=== PATIENT | male | born 1960 | race Caucasian/White ===

== ENCOUNTER 2017-03-29 08:25 | Emergency (ER) | payer BC ==
[~2017-03-29] VITALS: Ht 182.9 cm; Wt 102.2 kg
[2017-03-29 08:26] VITALS: TEMP 36.6; Ht 182.9 cm; Wt 102.2 kg
[2017-03-29] MEDS ORDERED: MAGN400T6 PO (08:36)
[2017-03-29] MEDS ORDERED: ROSU5TAB PO (08:36)
[2017-03-29] MEDS ORDERED: MULT-506 PO (08:36)
[2017-03-29] MEDS ORDERED: RIVA1TAB PO (08:36)
[2017-03-29] MEDS ORDERED: CYAN10005 PO (08:36)
[2017-03-29] MEDS ORDERED: CHOL100010 PO (08:36)
[2017-03-29] MEDS ORDERED: ASPI81TA28 PO (08:36)
[2017-03-29] MEDS ORDERED: COEN30CA6 PO (08:36)
--- NOTE | 2017-03-29 08:42 | EMERGENCY ROOM VISIT NOTE ---
ED Visit Note First contact with patient: 08:31 CHIEF COMPLAINT: Hand laceration HISTORY OF PRESENT ILLNESS: This 56-year-old male patient presents to the emergency department after cutting the right hand today at approximately 8:15 AM. 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 The bleeding has not stopped, patient is on Xarelto. Denies weakness or numbness of the fingers or hand. The patient rates the pain as aching and to/10. The patient denies any other injuries. The patient's Tetanus shot is not up to date. REVIEW OF SYSTEMS: A 6 system review of systems was completed with positives and pertinent negatives listed in the HPI. ALLERGIES: See chart MEDICATIONS: See chart PMH: See chart SOCIAL HISTORY: See chart PHYSICAL EXAM: Vital Signs: Reviewed Nurse's notes, vital signs stable. GENERAL : Pleasant and cooperative, in no acute distress, well-developed, well- nourished. SKIN: There is a 1.5 cm long laceration on the palmar aspect of the right hand just below the thumb. The edges gape apart with traction. There is no foreign material in the wound and it looks clean. There is moderate bleeding. No deep structures such as tendons, bones, or significant blood vessels are seen in the base of the wound. Normal strength and movement of the right thumb. Capillary refill less than 2 seconds. Normal sensation to light and sharp touch. EMERGENCY DEPARTMENT COURSE: I examined the patient. Verbal consent was obtained to perform the procedure. Using sterile technique the wound was cleansed with Betadine. The area was sterilely draped. 1 ml of 1% buffered lidocaine with epinephrine was used to anesthetize the laceration on the right hand. Once the patient was anesthetized, the wound was copiously irrigated under pressure with sterile saline. The wound was explored and was as described above. The laceration was repaired using 3 simple interrupted 5-0 nylon sutures with the wound edges being well approximated. The patient tolerated the procedure well. Hemostasis was achieved. The area was cleaned with sterile saline and dressed with bacitracin ointment and bandage. The patient was given Tdap immunization. The patient was discharged home in good condition. Medication Reconciliation: I attest that I have personally reviewed the patient' s current medication list. Blood pressure screening: The patient was found to have an elevated blood pressure and was referred to their primary doctor for recheck and further treatment. Current/Historical Medications Scheduled Aspirin (Aspirin Ec), 81 MG PO DAILY Cholecalciferol (Vitamin D), 1,000 UNITS PO DAILY Coenzyme Q10 (Ubidecarenone) (Coq10), Unknown Dose PO DAILY Cyanocobalamin (Vitamin B-12), 1,000 MCG PO DAILY Magnesium Oxide (Mag-Ox), 400 MG PO DAILY Multivitamin (Multivitamin), 1 TAB PO DAILY Rivaroxaban (Xarelto), Unknown Dose PO DAILY Rosuvastatin Calcium (Crestor), Unknown Dose PO DAILY Allergies Coded Allergies: No Known Allergies (Unverified , 03/29/17) Vital Signs Date Time Temp Pulse Resp B/P (MAP) Pulse Ox O2 Delivery O2 Flow Rate FiO2 03/29/17 09:20 58 16 158/70 97 03/29/17 08:26 36.6 64 18 162/90 96 Room Air Medications Administered Medications (Trade) Dose Ordered Sig/Sonny Route Start Time Stop Time Status Last Admin Dose Admin Diphtheria/ Pertussis/Tetanus Vacc (Adacel Inj) 0.5 ml ONCE ONCE IM. 03/29/17 08:45 03/29/17 08:46 DC 03/29/17 08:55 0.5 ML Departure Information Impression Primary Impression: Laceration of right hand without complication, excluding fingers Dispostion Home / Self-Care Condition GOOD Referrals Gris Horta M.D. (PCP) Patient Instructions ED Laceration Hand, [facility] Additional Instructions Follow-up with your PCP, in urgent care, or ER for suture removal in 10 days. Keep wound clean and dry. Do not allow any crusting or dried blood to accumulate on sutures. If this occurs, use a 1:1 solution of hydrogen peroxide/ water on a Q-tip to clean the wound. Use an antibiotic ointment for 3-4 days, then let wound dry and open to air. Do not submerge the wound under water (such as washing dishes or swimming) until the wound is fully healed and the sutures are removed. Ice and elevate for swelling and pain. Ibuprofen 600 mg and Tylenol 1000 mg every 6-8 hrs as needed for pain. Keep covered when in sun until sutures removed then SPF 50 or higher for one year. Vitamin E oil if desired two weeks after suture removal for reduction of scar. Please seek immediate medical attention for any signs of infection (increasing redness, swelling, pus drainage, streaking up the arm, fever/chills). Problem Qualifiers Primary Impression: Laceration of right hand without complication, excluding fingers Encounter type: initial encounter Qualified Codes: S61.411A - Laceration without foreign body of right hand, initial encounter
[2017-03-29] MEDS ORDERED: LIDOCAINE/EPINEPHRINE 1% 20 ML VIAL INFIL ONE (08:45)
[2017-03-29] MEDS ORDERED: DIPHTHERIA/TETANUS/PERTUSSIS 0.5 ML SYR/VIAL IM. ONE (08:45)
[2017-03-29 09:20] VITALS: BP 158/70; PULSE 58; O2SAT 97
== END 2017-03-29 09:22 | disposition home or self-care (01) ==
LOC: C.EDB 08:26
DX: S61.411A Laceration without foreign body of right hand, initial encounter (principal); W26.8XXA Contact with other sharp object(s), not elsewhere classified, initial encounter; Y93.E9 Activity, other interior property and clothing maintenance; Y99.8 Other external cause status; Z23 Encounter for immunization; Z79.01 Long term (current) use of anticoagulants; Z79.82 Long term (current) use of aspirin

== ENCOUNTER → 2017-08-27 | Outpatient (CLI) | payer BC ==
[~2017-08-27] MED LIST: ASPI81TA28 PO; CHOL100010 PO; COEN30CA6 PO; CYAN10005 PO; MAGN400T6 PO; MULT-506 PO; RIVA1TAB PO; ROSU5TAB PO
--- NOTE | 2017-08-27 17:45 | DIAGNOSTIC IMAGING REPORT ---
CT LUNG SCREENING, LOW DOSE WITH COMPUTER-AIDED DETECTION (CAD) CLINICAL HISTORY: Screening for malignant neoplasm of respiratory organs. COMPARISON STUDY: Low dose lung screening CT August 02, 2016/ CT DOSE: 80.53 mGycm TECHNIQUE: Low-dose helical CT was acquired without intravenous contrast from lung apices to bases and reconstructed at 2.5 mm every 2 mm. CAD was utilized for this study. A dose lowering technique was utilized adhering to the principles of ALARA. FINDINGS: No enlarged axillary, mediastinal or hilar lymph nodes are present. The size the heart is normal. There is no pericardial effusion. Mild dilatation of the ascending aorta, measuring 4 cm at the level the main pulmonary artery is unchanged. No pneumothorax or pleural effusion is present. There is no consolidation to suggest pneumonia. A 6 mm subpleural left apical opacity shown on image 16 of [address] of August 02, 2016. A 6 mm right middle lobe nodule shown on image 68 is also unchanged. A 5 mm subpleural nodule within the right lower lobe shown on image 68 is unchanged. There are no suspicious pulmonary nodule. Mild groundglass opacity within the right middle lobe suggests atelectasis or scarring. Bony thorax is unremarkable. IMPRESSION: 1. No change in several small pulmonary nodules since CT of August 02, 2016. These are low suspicion and the patient may continue annual screening in 12 months. 2. No change in mild aneurysmal dilatation of the ascending aorta which measures 4 cm. CAD FINDINGS: Overall Lung RADS Category: 2 Lung RADS Management Recommendation: Continue annual lung cancer screening. Lung RADS Follow Up Date: August 27, 2018 Electronically signed by: Rashel Patel M.D. 08/27/2017 5:43 PM Dictated Date/Time: 08/27/2017 3:18 PM
== END | disposition home or self-care (01) ==
LOC: C.CTS 14:39
PROVIDERS: ATTEND Family Medicine
DX: Z12.2 Encounter for screening for malignant neoplasm of respiratory organs (principal); F17.200 Nicotine dependence, unspecified, uncomplicated

== ENCOUNTER → 2017-11-25 | Outpatient (CLI) | payer OTHER ==
--- NOTE | 2017-11-25 08:01 | DIAGNOSTIC IMAGING REPORT ---
ULTRASOUND RIGHT UPPER QUADRANT ABDOMEN CLINICAL HISTORY: Elevated hepatic transaminases. COMPARISON STUDY: No priors. TECHNIQUE: Real-time, grayscale, and color flow sonography of the right upper quadrant of the abdomen was performed. Images are reviewed in the transverse and longitudinal planes. FINDINGS: Liver: The liver is enlarged and demonstrates heterogeneously increased echotexture consistent with severe hepatic steatosis. Note that this degrades acoustic penetration of the liver. Fatty sparing is seen adjacent to gallbladder fossa. There is no intrahepatic biliary ductal dilatation. The main portal vein is patent. Gallbladder: The gallbladder is normal in appearance. No gallstones are identified. There is no gallbladder wall thickening or pericholecystic fluid. A sonographic Agudelo's sign is reportedly absent. The common bile duct measures up to 0.4 cm in diameter. Pancreas: Not well visualized due to overlying bowel gas. Right kidney: Survey images of the right kidney demonstrate normal size and echotexture. There is no hydronephrosis. Ascites: None. IMPRESSION: 1. Hepatomegaly and severe hepatic steatosis. 2. No gallstones are identified. Electronically signed by: Dominik Boyd M.D. 11/25/2017 7:59 AM Dictated Date/Time: 11/25/2017 7:56 AM
== END | disposition home or self-care (01) ==
LOC: C.ULTR 07:11
PROVIDERS: ATTEND Family Medicine
DX: R79.89 Other specified abnormal findings of blood chemistry (principal)

== ENCOUNTER 2020-11-03 13:55 | Observation (INO) ==
--- NOTE | 2020-11-03 14:36 | XRay Report ---
XR chest 1V portable HISTORY: weakness COMPARISON: CT chest 02/01/2020. FINDINGS: The lungs are clear. Cardiac silhouette is normal in size. No pleural effusions. No pneumot horax. IMPRESSION: No acute process. ACT 112: Negative or not required by law. Electronically signed by: Pb Richard M.D. 11/03/2020 2:34 PM
--- NOTE | 2020-11-03 14:40 | Emergency Department Note ---
Impression & Plan Chest pain, Atrial fibrillation, Abnormal EKG ED Provider Note NAME: PRASHANT BACH AGE: 60 SEX: M : 1960 ARRIVES VIA: Walk-In INFORMANT: Patient, ED PROVIDER(S): Moreno Cerna DO CHIEF COMPLAINT: Palpitations HPI: The patient is a 60-year-old male who presented to the emergency department at the request of his primary care physician for an evaluation of chest pain and palpitations. The patient has been noticing symptoms over the last several days. He does have a history of coronary artery disease. He last had a cardiac catheterization a few years ago and had documented lesions were not intervened at that time because they were not felt to be culprit lesions. The patient states that he went to see his primary care physician today for his routine checkup. At that time he was discussing with his family doctor that he has been having some episodes of chest pain as well as palpitations. He had an EKG done in the office and was found to be in atrial fibrillation. He was sent to the emergency department for further evaluation. The patient describes anterior chest pain which is nonradiating that occurs intermittently. He does not feel it is related to exertion. He states that when he has the pain sometimes he notices that his heart rate is irregular and fast. He denies having any shortness of breath. At this time he states he has no chest pain. He denies having any nausea or vomiting. He has no abdominal pain. He denies having any recent fevers or chills. He has no cough. ROS: See above HPI for pertinent positives & negatives. A total of 10 systems reviewed and were otherwise negative. PAST MEDICAL HISTORY: See Below PAST SURGICAL HISTORY: See Below FAMILY HISTORY: See Below SOCIAL HISTORY: See Below HOME MEDICATIONS: See Below ALLERGIES: See Below VITALS: See Below PHYSICAL EXAMINATION: GENERAL: Patient is awake alert in no acute distress patient is resting comfortably and showing no signs of anxiety EYES: The conjunctivae are clear. The pupils are round and reactive. EARS, NOSE, MOUTH AND THROAT: The nose is without any evidence of any deformity. NECK: The neck is nontender and supple. RESPIRATORY: Normal respiratory effort is noted there is no evidence of wheezing rhonchi or rales CARDIOVASCULAR: Irregular rhythm was noted to auscultation. No definite murmur was noted to auscultation. GASTROINTESTINAL: The abdomen is soft. Abdomen is nontender. MUSCULOSKELETAL/EXTREMITIES: There is no evidence of gross deformity full range of motion is noted in the hips and shoulders. SKIN: There is no obvious evidence of any rash. There are no petechiae, pallor or cyanosis noted. NEUROLOGIC: Patient is awake alert and oriented x3. MEDICAL DECISION MAKING: The patient is a 60-year-old male who presented to the emergency department at the request of his primary care physician because of chest pain. The patient is a history of atrial fibrillation. He does take oral anticoagulation. He presented to the emergency department today because of chest pain that he has been experiencing over the last week. The patient describes intermittent episodes of chest pain which last about 10 to 15 minutes. Sometimes this is associated with tachycardia. I discussed the patient's laboratory and radiogr aphic studies with him. At this time his troponin was negative. EKG in the emergency department did show low lateral ST abnormalities. The patient's troponin was negative. I discussed the patient's laboratory and radiographic studies with him. I discussed the limitations of the emergency department work- up for chest pain with him. Given the patient's risk factors I do feel he may be a better candidate for inpatient management. He normally follows with an delivery supervisor in [place] and his last catheterization he was found to have coronary artery disease but he did not have any intervention at that time. It is possible that the patient is noticing the symptoms with rapid h eartbeat which could be customer account representative of underlying ischemia After the patient discussed his condition with his significant other there was concern for the patient's chest pain and he would prefer to be evaluated by the hospitalist. Triage Nursing notes reviewed. Prior medical records reviewed Vital Signs: reviewed and remarkable for no significant abnormalities Differential diagnosis: Cardiac ischemia, aortic dissection, pulmonary embolism, pneumothorax, pneumonia, pericarditis, myocarditis, esophageal rupture, GERD, cholecystitis, pancreatitis, musculoskeletal, as well as other pathologies. ER treatment provided: See below Diagnostics interpreted by me: ECG: EKG was obtained in the emergency department. My interpretation is atrial fibrillation at 68 bpm. There were no PVCs. Lateral ST depressions were noted. This was compared to a tracing from November 072008. Atrial fibrillation has replaced normal sinus rhythm. Cardiac Monitoring: An order was placed for continuous cardiac monitoring. The monitor shows a rate of 82 bpm with atrial fibrillation rhythm. Laboratory studies: As stated above and show below. Imaging studies: See below Consultation(s): 2856: I discussed this case with Dr. Hanks who is on-call for the [facility] hospitalist group. Past Med/Surg History Medical History (Updated 11/03/20 @ 15:54 by Moreno Cerna DO) Atrial fibrillation High cholesterol Social History Smoking Status: Former smoker Cigarettes Per Day: 20; Second Hand Exposure: Yes; Feels Safe at Home: Yes Allergies Allergies Allergy/AdvReac Type Severity Reaction Status Date / Time No Known Allergies Allergy Unverified 11/03/20 16:39 Home Meds Home Medications Medication Instructions Recorded Confirmed ASPIRIN (ASPIRIN EC) 81 mg PO DAILY #0 03/29/17 COENZYME Q10 (UBIDECARENONE) 1 tab PO QPM #0 03/29/17 (COQ10) Cholecalciferol (Vitamin D) 1,000 unit PO DAILY #0 03/29/17 Cyanocobalamin (Vitamin B-12) 1,000 mcg PO DAILY #0 tab 03/29/17 Magnesium Oxide (Mag-Ox) 400 mg PO DAILY #0 tab 03/29/17 Multivitamin 1 tab PO DAILY #0 tab 03/29/17 ALBUTEROL HFA (VENTOLIN HFA) 2 - 4 puff INHALATION Q6H PRN #1 02/10/18 inhaler LEVOTHYROXINE SODIUM (SYNTHROID) 1 tab PO DAILY 30 Days #30 tab 02/10/18 OMEGA-3 FATTY ACIDS (FISH OIL) 1 cap PO DAILY #0 02/10/18 RIVAROXABAN (XARELTO) 1 tab PO HS 30 Days #30 tab 02/10/18 ROSUVASTATIN CALCIUM (CRESTOR) 1 tab PO HS 30 Days #0 tab 02/10/18 Results & Data (ED) Vital Signs Vital Signs - 24 hr 11/03/20 14:02 11/03/20 14:15 11/03/20 14:35 Temperature 36.2 C L Temperature Source Temporal Artery Scan Pulse Rate 79 Pulse Rate [Left Apical] 71 Pulse Rhythm [Left Apical] Regular Pulse Strength [Left Apical] Normal Respiratory Rate 20 18 Respiratory Effort / Characteristics Non-Labored Spontaneous Non-Labored Spontaneous Respiratory Depth Normal Normal Respiratory Pattern Regular Regular Blood Pressure 169/103 H Blood Pressure [Left Arm] 144/98 H Blood Pressure Mean 125 Blood Pressure Mean [Left Arm] 113 Blood Pressure Position [Left Arm] Sitting Pulse Oximetry 97 97 Oxygen Delivery Method Room Air Room Air Room Air Sepsis Recent Fever Within 48 Hours No Sepsis New/Unexplained Change in Mental Status N/A Sepsis Action Taken by Nursing No Action Required 11/03/20 14:46 11/03/20 15:27 11/03/20 16:08 Temperature Temperature Source Pulse Rate Pulse Rate [Left Apical] 62 67 Pulse Rhythm [Left Apical] Irregular Irregular Pulse Strength [Left Apical] Normal Normal Respiratory Rate 16 16 Respiratory Effort / Characteristics Non-Labored Non-Labored Spontaneous Respiratory Depth Normal Normal Respiratory Pattern Regular Regular Blood Pressure Blood Pressure [Left Arm] 110/70 125/84 Blood Pressure Mean Blood Pressure Mean [Left Arm] 83 97 Blood Pressure Position [Left Arm] Lying Sitting Pulse Oximetry 96 98 Oxygen Delivery Method Room Air Room Air Room Air Sepsis Recent Fever Within 48 Hours Sepsis New/Unexplained Change in Mental Status Sepsis Action Taken by Usp Medications Current Medication List: was personally reviewed by me Laboratory Data Attestation: I reviewed the patient's lab results. Result diagrams: 11/03/20 14:40 11/03/20 14:40 Lab Results 11/03/20 11/03/20 11/03/20 Range/Units 14:40 14:40 14:40 WBC 6.37 (4.8-10.8) K/uL RBC 4.96 (4.7-6.1) M/uL Hgb 14.8 (14.0-18.0) g/dL Hct 42.7 (42-52) % MCV 86.1 (80-100) fL MCH 29.8 (25-34) pg MCHC 34.7 (32-36) g/dL RDW Std Deviation 40.5 (36.4-46.3) fL RDW Coeff of Sofy 12.8 (11.5-14.5) % Plt Count 225 (130-400) K/uL MPV 10.6 H (7.4-10.4) fL Immature Gran % (Auto) 0.0 % Neut % (Auto) 50.0 % Lymph % (Auto) 41.0 % [place] % (Auto) 7.1 % Eos % (Auto) 1.4 % Baso % (Auto) 0.5 % Neut # (Auto) 3.19 (1.4-6.5) K/uL Lymph # (Auto) 2.61 (1.2-3.4) K/uL [place] # (Auto) 0.45 (0.11-0.59) K/uL Eos # (Auto) 0.09 (0-0.5) K/uL Baso # (Auto) 0.03 (0-0.2) K/uL Immature Gran # (Auto) 0.00 (0.00-0.02) K/uL PT 11.2 (9.0-12.0) Seconds INR 1.1 (0.9-1.1) APTT 26.8 (21.0-31.0) Seconds PTT Ratio 1.0 Sodium 137 (136-145) mmol/L Potassium 4.1 (3.5-5.1) mmol/L Chloride 105 (98-107) mmol/L Carbon Dioxide 26 (21-32) mmol/L Anion Gap 6.0 (3-11) BUN 15 (7-18) mg/dl Creatinine 0.86 (0.6-1.4) mg/dl Est Cr Clr Drug Dosing 111.3 ml/min Est GFR ( Amer) 107.7 Est GFR (Non-Af Amer) 92.9 BUN/Creatinine Ratio 17.8 (10-20) Glucose 117 H (70-99) mg/dl Calcium 9.5 (8.5-10.1) mg/dl Magnesium 2.2 (1.8-2.4) mg/dl Total Bilirubin 0.7 (0.2-1) mg/dl AST 33 (15-37) U/L ALT 61 (12-78) U/L Alkaline Phosphatase 90 (45-117) U/L Troponin I < 0.015 (0-0.045) ng/ml Total Protein 8.2 (6.4-8.2) gm/dl Albumin 4.3 (3.4-5.0) gm/dl Globulin 3.9 (2.5-4.0) gm/dl Albumin/Globulin Ratio 1.1 (0.9-2) TSH 0.840 (0.300-4.500) uIu/ml Imaging Data Radiologist's Impression: Patient: PRASHANT BACH Admit Date: 11/03/20 MR#: [id number] Address1: [address] [place] [address] Acct ID:[id number] Address2: Date: 1960 [facility] Zip: [place] [id number] Age: 60 Location: ED Sex: M Room/Bed: Att Phy: Diagnosis: AFIB/CHEST PAIN Laura Phy: Gris Horta MD Service Date: 11/03/20 [facility] Phy: Interpreting Phy: Pb Richard MD Admit Phy: Ordering Phy: Moreno Cerna, DO cc: ~ XR chest 1V portable HISTORY: weakness COMPARISON: CT chest 02/01/2020. FINDINGS: The lungs are clear. Cardiac silhouette is normal in size. No pleural effusions. No pneumothorax. IMPRESSION: No acute process. ACT 112: Negative or not required by law. Electronically signed by: Pb Richard M.D. 11/03/2020 2:34 PM Dictated: 11/03/20 1433 Transcribed: 11/03/20 1433 Blood Pressure Blood Pressure Findings: Normal blood pressure Discharge Plan Visit Data Chief Complaint: Cardiac Assessment Stated Complaint: AFIB/CHEST PAIN ED Provider: Moreno Cerna Discharge Problem: Chest pain, Atrial fibrillation, Abnormal EKG Patient Disposition: Being Evaluated by Hospitalist Condition: Good Discharge Instructions Krames/Other Patient Handouts: ED Chest Pain, Uncertain Cause Activity Restrictions/Additional Instructions: Continue all medications as prescribed. Rest and avoid any strenuous activity. Call your cloth checker to schedule a follow-up appointment. Return the emergen cy department immediately if symptoms change worsen or the need arises. Forms Stand Alone Forms: Formerly [facility], 1928–1983, Virtual Emergency Department, Important Visit Information Prescriptions Prescriptions: No Action multivitamin Tablet 1 tab PO DAILY RF: 0 cyanocobalamin (vitamin B-12) [Vitamin B-12] 1,000 mcg Tablet 1,000 mcg PO DAILY RF: 0 levothyroxine 100 mcg tablet 100 mcg PO DAILY RF: 0 lisinopril 10 mg tablet 10 mg PO HS RF: 0 coenzyme Q10 [CoQ-10] 100 mg Capsule 0 mg PO DAILY RF: 0 rosuvastatin [Crestor] 40 mg tablet 40 mg PO HS RF: 0 cholecalciferol (vitamin D3) [Vitamin D3] 25 mcg (1,000 unit) Tablet 25 mcg PO DAILY RF: 0 Xarelto 20 mg tablet 20 mg PO HS RF: 0 magnesium oxide 400 mg magnesium Tablet 400 mg PO DAILY RF: 0 Referrals Referrals: Gris Horta [Primary Care Provider] - Discharge Problem: Chest pain Qualifiers: Chest pain type: unspecified Qualified Code(s): R07.9 - Chest pain, unspecified Atrial fibrillation Qualifiers: Atrial fibrillation type: paroxysmal Qualified Code(s): I48.0 - Paroxysmal atrial fibrillation
[2020-11-03 15:00] LABS: Basophils # (auto) 0.03 K/uL (0-0.2); Basophils % (auto) 0.5 %; Eosinophils # (auto) 0.09 K/uL (0-0.5); Eosinophils % (auto) 1.4 %; Hematocrit (blood only) 42.7 % (42-52); Hemoglobin 14.8 g/dL (14.0-18.0); Lymphocytes # (auto) 2.61 K/uL (1.2-3.4); Mean Corpuscular Hemoglobin 29.8 pg (25-34); Mean Corpuscular Hgb Conc 34.7 g/dL (32-36); Mean Corpuscular Volume 86.1 fL (80-100); Mean Platelet Volume 10.6 fL (7.4-10.4); Monocytes # (auto) 0.45 K/uL (0.11-0.59); Monocytes % (auto) 7.1 %; Neutrophils # (auto) 3.19 K/uL (1.4-6.5); Platelet Count 225 K/uL (130-400); RDW Coefficient of Variation 12.8 % (11.5-14.5); RDW Standard Deviation 40.5 fL (36.4-46.3); Red Blood Count 4.96 M/uL (4.7-6.1); White Blood Count 6.37 K/uL (4.8-10.8)
[2020-11-03 15:12] LABS: INR 1.1 (0.9-1.1); Partial Thromboplastin Time 26.8 Seconds (21.0-31.0); Prothrombin Time 11.2 Seconds (9.0-12.0)
[2020-11-03 15:17] LABS: Alanine Aminotransferase 61 U/L (12-78); Albumin Level 4.3 gm/dl (3.4-5.0); Aspartate Aminotransferase 33 U/L (15-37); BUN Creatinine Ratio 17.8 (10-20); Blood Urea Nitrogen 15 mg/dl (7-18); Calcium 9.5 mg/dl (8.5-10.1); Carbon Dioxide 26 mmol/L (21-32); Chloride 105 mmol/L (98-107); Creatinine Clr Calc Pharmacy 111.3 ml/min; Est GFR (African American) 107.7; Est GFR (Non-African American) 92.9; Glucose 117 mg/dl (70-99); Magnesium 2.2 mg/dl (1.8-2.4); Potassium 4.1 mmol/L (3.5-5.1); Sodium 137 mmol/L (136-145)
[2020-11-03 15:28] LABS: Albumin Globulin Ratio 1.1 (0.9-2); Alkaline Phosphatase 90 U/L (45-117); Bilirubin,Total 0.7 mg/dl (0.2-1); Globulin 3.9 gm/dl (2.5-4.0); Total Protein 8.2 gm/dl (6.4-8.2); Troponin I < 0.015 ng/ml (0-0.045)
--- NOTE | 2020-11-03 17:49 | History & Physical Report ---
Date of Service November 03, 2020 Assessment & Plan (1) Atypical chest pain: Initial troponin negative, repeat with AM labs but do not suspect myocardial infarction. However possibly could represent unstable angina with known coronary artery disease. Hold Xarelto and switch to heparin low-dose without bolus. Start ASA N.p.o. after midnight Consult cardiology for consideration of stress test versus cardiac cath as discussed with Dr. Ontiveros (2) Hyperlipidemia: Continue rosuvastatin 40mg PO daily (3) Atrial fibrillation: Rate controlled without medication. Anticoagulation as above in case need for cardiac cath. (4) Hypertension: Continue lisinopril 10mg PO HS (5) Hypothyroidism: TSH WNL. Continue levothyroxine 100 mcg PO daily History of Present Illness Chief Complaint: Chest pain Primary Care Provider: Gris Horta 60 year old male patient of Dr Cm with coronary artery disease and who presents to the ER with chest pain. Permanent atrial fibrillation on Xarelto. Chest pain at rest, occurs while watching TV, mild, sharp, no radiation. Occurring more frequently over the last 2 weeks. Associated tachycardia noted on his apple watch with HR around 110s. No significant worsening in the last 12 hours. He reports not exerting himself significantly during this time so unknown whether this made it any worse. Routine appointment with PCP today and sent over due to concerns for acute coronary syndrome. ?association with eating. He notes a history of coronary artery disease and the patient reports a 70% blockage of an artery a few years ago but cannot remember the exact details regarding this. He has never had any stents of bypass surgery. In the ER, initial troponin was negative, EKG showing atrial fibrillation without any specific ischemic changes. He was referred to medicine for admission and ongoing management of a. fib, chest pain. Allergies Allergy/AdvReac Type Severity Reaction Status Date / Time No Known Allergies Allergy Unverified 11/03/20 16:39 Home Medications Medication Instructions Recorded Confirmed Type Xarelto 20 mg PO HS 11/03/20 11/03/20 History cholecalciferol (vitamin D3) 25 mcg PO DAILY 11/03/20 11/03/20 History [Vitamin D3] coenzyme Q10 [CoQ-10] 0 mg PO DAILY 11/03/20 11/03/20 History cyanocobalamin (vitamin B-12) 1,000 mcg PO DAILY 11/03/20 11/03/20 History [Vitamin B-12] levothyroxine 100 mcg PO DAILY 11/03/20 11/03/20 History lisinopril 10 mg PO HS 11/03/20 11/03/20 History magnesium oxide 400 mg PO DAILY 11/03/20 11/03/20 History multivitamin 1 tab PO DAILY 11/03/20 11/03/20 History rosuvastatin [Crestor] 40 mg PO HS 11/03/20 11/03/20 History Past Med/Surg History Medical History Anxiety Atrial fibrillation Carotid artery plaque Erectile dysfunction Fatty liver Hepatomegaly High cholesterol History of tobacco use Hyperlipidemia Hypertension Hypothyroidism Obesity Osteopenia Reactive airway disease Social History Smoking Status: Former smoker Cigarettes Per Day: 20; Second Hand Exposure: Yes; Hx Alcohol Use: Yes Alcohol type: beer, wine and hard liquor Hx Substance Use: No Preferred Language: Greenlandic Communication Ability: Effective Physician Assistant Psychiatry Required: No Beliefs That Will Affect Care: None Current Living Situation: Spouse Feels Safe at Home: Yes Assistive Devices: None Review of Systems Review of Systems: All systems reviewed & are unremarkable except as noted in HPI & below Physical Exam Constitutional: well developed and well nourished; no acute distress Eyes: + anicteric sclerae; normal pupil size ENMT: external ear and nose normal, oropharynx normal Neck: trachea midline, no thyromegaly Respiratory: normal respiratory effort, lungs clear to auscultation Cardiovascular: Rate/Rhythm: regular rate and + irregularly irregular Heart Sounds: no murmur Vessels: no JVD Extremities: normal capillary refill; no calf tenderness and no pedal edema Gastrointestinal (Abdomen): normal bowel sounds, soft, nontender, no hepatosplenomegaly Musculoskeletal: no cyanosis or clubbing, extremities motor strength 5/5 Skin: no rashes, warm and dry Neurologic: moves all extremities and awake; not confused Psychiatric: A+Ox3, euthymic affect Results & Data Results & Data ([facility]) Vital Signs (Past 12 Hours) Vital Signs Temp Pulse Pulse Resp BP BP Pulse Ox 11/03/20 16:08 67 16 125/84 98 11/03/20 15:27 62 16 110/70 96 11/03/20 14:35 71 18 144/98 H 97 11/03/20 14:02 36.2 C L 79 20 169/103 H 97 Diagnostic Findings XR chest 1V portable IMPRESSION: No acute process Medications Administered ER Medications given: None ECG Indication: SOB/dyspnea Rate (beats per minute): 68 Rhythm: atrial fibrillation Comparison ECG Date: from (Nov 07, 2008) Change: the following changes noted (atrial fibrillation replaced sinus rhythm) Code Status & VTE Plan Code Status Full VTE Prophylaxis Plan VTE Prophylaxis will be ordered: Yes PG Care Time/CCT Total # of Minutes Spent Total Time Spent with Patient: Total time spent is greater than 50% in coordination of care (as documented) at patient's floor/unit and/or counseling patient: Coding Level of Care Code 18404 OBS Care - Level 3 Diagnoses Atypical chest pain R07.89 Hyperlipidemia E78.5 Atrial fibrillation I48.0 Atrial fibrillation type: paroxysmal Hypertension I10 Hypothyroidism E03.9 (1) Atrial fibrillation Atrial fibrillation type: paroxysmal Qualified Code(s): I48.0 - Paroxysmal atrial fibrillation
[2020-11-03] MEDS ORDERED: Heparin IV Adult Wt-Based Low-Dose *NO* Bolus Protocol IV SCH (19:21)
[2020-11-03] MEDS ORDERED: ACETAMINOPHEN 325 MG TAB PO PRN (19:21)
[2020-11-03] MEDS ORDERED: HEPARIN SODIUM/DEXTROSE 25,000 UNITS/500 ML BAG IV SCH (19:21)
[2020-11-03] MEDS ORDERED: ONDANSETRON INJ 2 MG/ML 2 ML VIAL IV PRN (19:21)
[2020-11-03] MEDS ORDERED: ALUMINUM/MAGNESIUM SUSP 30 ML UDC PO PRN (19:21)
[2020-11-03] MEDS ORDERED: ROSUVASTATIN CALCIUM 20 MG TAB PO SCH (21:00)
[2020-11-03] MEDS ORDERED: lisinopril 10 MG TAB PO SCH (21:00)
[2020-11-04 03:08] LABS: Partial Thromboplastin Ratio 1.3; Partial Thromboplastin Time 33.9 Seconds (21.0-31.0)
[2020-11-04 03:17] LABS: BUN Creatinine Ratio 18.1 (10-20); Blood Urea Nitrogen 14 mg/dl (7-18); Calcium 8.7 mg/dl (8.5-10.1); Carbon Dioxide 26 mmol/L (21-32); Chloride 108 mmol/L (98-107); Creatinine Clr Calc Pharmacy 126.9 ml/min; Est GFR (African American) 113.9; Est GFR (Non-African American) 98.3; Glucose 100 mg/dl (70-99); Potassium 3.8 mmol/L (3.5-5.1); Sodium 139 mmol/L (136-145)
[2020-11-04 03:21] LABS: Troponin I < 0.015 ng/ml (0-0.045)
[2020-11-04] MEDS ORDERED: HEPARIN IV BOLUS 4,000 UNITS in SYRINGE 0 ML IV ONE (03:50)
--- NOTE | 2020-11-04 05:34 | Electrocardiogram Report ---
Test Reason : Blood Pressure : / mmHG Vent. Rate : 068 BPM Atrial Rate : 066 BPM P-R Int : 000 ms QRS Dur : 092 ms QT Int : 392 ms P-R-T Axes : 000 -22 051 degrees QTc Int : 416 ms Atrial fibrillation Incomplete right bundle branch block Abnormal ECG When compared with ECG of 07-NOV-2008 14:10, Atrial fibrillation has replaced Sinus rhythm Confirmed by Jorge Sanchez ([id number]) on 11/04/2020 5:34:30 AM Referred By: ED Confirmed By:Jorge Sanchez
[2020-11-04] MEDS ORDERED: LEVOTHYROXINE SODIUM 100 MCG TABLET PO SCH (06:30)
[2020-11-04] MEDS ORDERED: CHOLECALCIFEROL 1,000 UNITS 25 MCG TAB PO SCH (09:00)
[2020-11-04] MEDS ORDERED: CYANOCOBALAMIN 500 MCG TABLET (VITAMIN B-12) PO SCH (09:00)
[2020-11-04] MEDS ORDERED: ASPIRIN 81 MG ECTAB PO SCH (09:00)
[2020-11-04] MEDS ORDERED: MULTIVITAMIN TAB PO SCH (09:00)
[2020-11-04] MEDS ORDERED: MAGNESIUM OXIDE 400 MG TAB PO SCH (09:00)
[2020-11-04] MEDS ORDERED: NON-FORMULARY MEDICATION (Coenzyme Q10 [Coq-10] 100 mg Capsule) PO SCH (09:00)
--- NOTE | 2020-11-04 09:19 | Cardiology Consultation ---
Date of Consultation November 04, 2020 Assessment & Plan (1) Atypical chest pain: His symptoms are quite atypical for an acute coronary syndrome. The 2 episodes which occurred last week were distinct from each other with respect to symptoms. The fact that the episodes occurred at rest, were atypical in character and short in duration would suggest that these were noncardiac in etiology. There is been no objective evidence of ischemia. Cardiac biomarkers are normal. EKG is unremarkable with the exception of atrial fibrillation. I think we will perform an echocardiogram and have the patient ambulate. Provided there are no notable abnormalities on his echocardiogram he is feeling well with ambulation he could likely be discharged on his current medical regimen with outpatient follow-up and stress testing in the outpatient setting. If you are not atrial fibrillation could perform regular stress testing today, but I think the best option given his atrial fibrillation would be perfusion imaging. (2) Atrial fibrillation: Reportedly paroxysmal. He has a new watch which suggests that he has been in atrial fibrillation more commonly recently. He does not appear to be overtly symptomatic with respect to the palpitations. He is on appropriate anticoagulation with rivaroxaban. History of Present Illness Reason for Consultation: Chest pain Requesting Physician: Latonya Attending Physician: Thiago Paulino DO History of Present Illness The patient is a 60-year-old gentleman with a history of atrial fibrillation and coronary artery disease who presented to his primary care physician yesterday afternoon for routine 6-month evaluation. During the interview he did mention 2 episodes of atypical chest discomfort which occurred over the past week. Based on this history was referred to the emergency room for an evaluation and admitted overnight for observation. Patient states that his cardiac symptoms started in 2015. At that time he felt like he "person was sitting on his chest" and presented for evaluation to the local emergency room. He was discovered to have atrial fibrillation. He was started on antiarrhythmic therapy and anticoagulation. Due to concerns over coronary disease on the patient's part he underwent cardiac catheterization which revealed branch vessel disease of unclear significance. No intervention was performed. He was started on aggressive risk factor modification. He appears to have had some difficulty using flecainide over the years and this was discontinued. Patient states that on 2 occasions over the past week he noticed an episode of chest discomfort. The first occasion occurred approximately 5 days ago. It was characterized by a very sharp and severe discomfort in the precordium. With some deep breathing, changes in position and drinking some water this resolved in a few minutes. It has not recurred. The patient had a second episode of very discrete discomfort close to the xiphoid process 2 days ago. This also responded to changes in position, deep breathing and drinking some fluids. It lasted a few minutes. It has not recurred. Both episodes occurred at rest. In the interim the patient has been active. He has been out shoveling snow without symptoms of chest discomfort or dyspnea. He admits to being more sedentary recently. However, generally does not have exertional symptoms or limitations. He did have COVID-19 in July of last year. This did produce some fatigue and vertigo. The symptoms appear to have resolved. Allergies Allergy/AdvReac Type Severity Reaction Status Date / Time No Known Allergies Allergy Unverified 11/03/20 16:39 Home Medications Medication Instructions Recorded Confirmed Type Xarelto 20 mg PO HS 11/03/20 11/03/20 History cholecalciferol (vitamin D3) 25 mcg PO DAILY 11/03/20 11/03/20 History [Vitamin D3] coenzyme Q10 [CoQ-10] 0 mg PO DAILY 11/03/20 11/03/20 History cyanocobalamin (vitamin B-12) 1,000 mcg PO DAILY 11/03/20 11/03/20 History [Vitamin B-12] levothyroxine 100 mcg PO DAILY 11/03/20 11/03/20 History lisinopril 10 mg PO HS 11/03/20 11/03/20 History magnesium oxide 400 mg PO DAILY 11/03/20 11/03/20 History multivitamin 1 tab PO DAILY 11/03/20 11/03/20 History rosuvastatin [Crestor] 40 mg PO HS 11/03/20 11/03/20 History Patient History Medical History Anxiety Atrial fibrillation Carotid artery plaque Erectile dysfunction Fatty liver Hepatomegaly High cholesterol History of tobacco use Hyperlipidemia Hypertension Hypothyroidism Obesity Osteopenia Reactive airway disease Social History Smoking Status: Former smoker Cigarettes Per Day: 20; Smoking End Date: approximately 2011; Second Hand Exposure: Yes; Hx Alcohol Use: Yes Alcohol type: beer, wine and hard liquor Hx Substance Use: No Preferred Language: Arabic Communication Ability: Effective Decommissioning Well Site Manager Required: No Beliefs That Will Affect Care: None Current Living Situation: Spouse Other Information That Helps Us Care for You: No Feels Safe at Home: Yes Safety Concerns: Feels Safe At This Time Assistive Devices: None Assistive Devices Comment: reading glasses Review of Systems Review of Systems: All systems reviewed & are unremarkable except as noted in HPI & below No lower extremity edema. No recent fevers or chills. Occasional pains between his back. Physical Exam Physical Exam: The patient is alert and oriented. Mood and affect appeared normal. He answered all questions appropriately. HEENT: Pupils are equal and reactive to light and accommodation. Extraocular movements are intact. The sclerae are anicteric. Neuro: Cranial nerves intact Neck: Patient's neck is supple. He has palpable carotid pulses bilaterally without bruits on auscultation. There is no evidence of jugular venous distention. The thyroid is not enlarged. Lungs: Clear to auscultation bilaterally. He has good air movement without use of accessory muscles. No rales wheezes or rhonchi. Cardiac: Heart demonstrates a a normal heart rate and irregular rhythm normal S1 and S2. No murmurs on examination. Pulses: The patient has palpable radial pulses bilaterally that are equal in intensity Extremities: There was no evidence of hypoperfusion. There is no cyanosis or clubbing. There is no edema. Skin: I did not appreciate any rashes on examination today. Atrial fibrillation Results & Data ([facility]) Vital Signs (Past 12 Hours) Vital Signs Temp Pulse Pulse Resp BP Pulse Ox 11/04/20 07:18 36.5 C 66 20 116/79 96 11/04/20 03:00 36.8 C 61 20 161/85 H 95 11/04/20 00:05 65 11/03/20 23:00 36.8 C 75 16 143/92 H 96 11/03/20 21:42 74 Laboratory Results Abnormal Lab Results 11/03/20 11/03/20 11/03/20 14:40 14:40 14:40 WBC 6.37 RBC 4.96 Hgb 14.8 Hct 42.7 MCV 86.1 MCH 29.8 MCHC 34.7 RDW Std Deviation 40.5 RDW Coeff of Sofy 12.8 Plt Count 225 MPV 10.6 H Immature Gran % (Auto) 0.0 Neut % (Auto) 50.0 Lymph % (Auto) 41.0 [place] % (Auto) 7.1 Eos % (Auto) 1.4 Baso % (Auto) 0.5 Neut # (Auto) 3.19 Lymph # (Auto) 2.61 [place] # (Auto) 0.45 Eos # (Auto) 0.09 Baso # (Auto) 0.03 Immature Gran # (Auto) 0.00 PT 11.2 INR 1.1 APTT 26.8 PTT Ratio 1.0 Sodium 137 Potassium 4.1 Chloride 105 Carbon Dioxide 26 Anion Gap 6.0 BUN 15 Creatinine 0.86 Est Cr Clr Drug Dosing 111.3 Est GFR ( Amer) 107.7 Est GFR (Non-Af Amer) 92.9 BUN/Creatinine Ratio 17.8 Glucose 117 H Calcium 9.5 Magnesium 2.2 Total Bilirubin 0.7 AST 33 ALT 61 Alkaline Phosphatase 90 Troponin I < 0.015 Total Protein 8.2 Albumin 4.3 Globulin 3.9 Albumin/Globulin Ratio 1.1 TSH 0.840 COVID-19 Eval Order SARS-CoV-2, RNA, NAAT 11/03/20 11/03/20 11/04/20 16:10 16:10 02:19 WBC RBC Hgb Hct MCV MCH MCHC RDW Std Deviation RDW Coeff of Sofy Plt Count MPV Immature Gran % (Auto) Neut % (Auto) Lymph % (Auto) [place] % (Auto) Eos % (Auto) Baso % (Auto) Neut # (Auto) Lymph # (Auto) [place] # (Auto) Eos # (Auto) Baso # (Auto) Immature Gran # (Auto) PT INR APTT 33.9 H PTT Ratio 1.3 Sodium Potassium Chloride Carbon Dioxide Anion Gap BUN Creatinine Est Cr Clr Drug Dosing Est GFR ( Amer) Est GFR (Non-Af Amer) BUN/Creatinine Ratio Glucose Calcium Magnesium Total Bilirubin AST ALT Alkaline Phosphatase Troponin I Total Protein Albumin Globulin Albumin/Globulin Ratio TSH COVID-19 Eval [facility] SARS-CoV-2, RNA, NAAT NEGATIVE 11/04/20 02:19 WBC RBC Hgb Hct MCV MCH MCHC RDW Std Deviation RDW Coeff of Sofy Plt Count MPV Immature Gran % (Auto) Neut % (Auto) Lymph % (Auto) [place] % (Auto) Eos % (Auto) Baso % (Auto) Neut # (Auto) Lymph # (Auto) [place] # (Auto) Eos # (Auto) Baso # (Auto) Immature Gran # (Auto) PT INR APTT PTT Ratio Sodium 139 Potassium 3.8 Chloride 108 H Carbon Dioxide 26 Anion Gap 5.0 BUN 14 Creatinine 0.75 Est Cr Clr Drug Dosing 126.9 Est GFR ( Amer) 113.9 Est GFR (Non-Af Amer) 98.3 BUN/Creatinine Ratio 18.1 Glucose 100 H Calcium 8.7 Magnesium Total Bilirubin AST ALT Alkaline Phosphatase Troponin I < 0.015 Total Protein Albumin Globulin Albumin/Globulin Ratio TSH COVID-19 Eval Order SARS-CoV-2, RNA, NAAT PG Care Time/CCT Total # of Minutes Spent Total Time Spent with Patient: Total time spent is greater than 50% in coordination of care (as documented) at patient's floor/unit and/or counseling patient: Coding Level of Care Code 10861 Office/OBS Consult Lvl 4 Diagnoses Atypical chest pain R07.89 Atrial fibrillation I48.0 Atrial fibrillation type: paroxysmal (1) Atrial fibrillation Atrial fibrillation type: paroxysmal Qualified Code(s): I48.0 - Paroxysmal atrial fibrillation
--- NOTE | 2020-11-04 11:43 | XCELERA ---
[id number]
--- NOTE | 2020-11-04 13:16 | Discharge Summary ---
Date of Service November 04, 2020 Admission HPI Per Admitting Provider 60 year old male patient of Dr Cm. Permanent atrial fibrillation on Xarelto. Chest pain at rest, occurs while watching TV, mild, no radiation. Occurring more frequently over the last 2 weeks. Associated tachycardia noted on his apple watch with HR around 110s. Routine appointment with PCP today and sent over due to concerns for acute coronary syndrome. ?association with eating. Principal Diagnosis chest pain Discharge Exam Constitutional WD/WN, vitals as above Neck trachea midline, no thyromegaly Respiratory normal respiratory effort, lungs clear to auscultation Cardiovascular RRR, no murmur, no edema Gastrointestinal (Abdomen) normal bowel sounds, soft, nontender, no hepatosplenomegaly Musculoskeletal no cyanosis or clubbing, extremities motor strength 5/5 Skin no rashes, warm and dry Neurologic patellar DTR's 2+ bilat, sensation intact and PERRL, EOMI, accommodation nl, no face palsy, no dysarthria Psychiatric A+Ox3, euthymic affect Lymphatic no cervical or axillary lymphadenopathy Discharge Data Allergies Allergy/AdvReac Type Severity Reaction Status Date / Time No Known Allergies Allergy Unverified 11/03/20 16:39 Consultations 11/03/20 16:22 ED Decision to Admit Stat 11/03/20 19:21 Consult Cardiology Routine Hospital Course (1) Atypical chest pain: no ischemic changes on EKG and troponin negative x 3 sets resting echocardiogram with preserved EF, no wall motion changes appreciate recommendations from Dr. Ontiveros patient should follow up with his cash controller in [place] for Lexiscan nuclear stress test given his propensity for atrial fibrillation patient without chest pain at the time of discharge, eating well, ambulating without chest pain/pressure discharge to home (2) Hyperlipidemia: Continue rosuvastatin 40mg PO daily (3) Atrial fibrillation: Rate controlled without medication. continue Xarelto 20mg HS for anticoagulation (4) Hypertension: Continue lisinopril 10mg PO HS (5) Hypothyroidism: TSH WNL. Continue levothyroxine 100 mcg PO daily Total Time Total Time Spent Total Time Spent (In Minutes): 25 Total Time Includes: Examination of the Patient, Discharge Planning, Medication Reconciliation and Communication With Other Providers Discharge Plan Discharge Items Patient Disposition: Home - Self-Care Reason For Visit: chest pain Discharge Diagnosis: Chest pain Condition on Discharge: Good Goals: follow up with cash controller for Lexiscan stress test Activity: Resume your previous activity Sexual Activity: Wait until after follow-up appointment Exercise/Sports: Wait until after follow-up appointment Exercise Comment: no strenuous activity until stress test Non-emergency contact: Primary Care Provider and [employer] Machine Feeder Call non-emergency contact if: you have any medication questions and your symptoms worsen Follow-up/Referrals: Gris Horta [Primary Care Provider] - Diet: Heart Healthy Addtl Attending Provider Instructions: Medications: no changes Chest pain: no changes on EKG, troponin negative, echocardiogram without any abnormalities evaluated by cardiology, Dr. Ontiveros, he recommends you follow up with your cash controller for a Lexiscan (nuclear) stress test this is preferred method given your atrial fibrillation would not perform strenuous activity until you get the stress test Pending Studies at Discharge: No Stand-Alone Forms: My [employer], Smoking Cessation Medications and DC Order Prescriptions: Continued multivitamin Tablet 1 tab PO DAILY RF: 0 cyanocobalamin (vitamin B-12) [Vitamin B-12] 1,000 mcg Tablet 1,000 mcg PO DAILY RF: 0 levothyroxine 100 mcg tablet 100 mcg PO DAILY RF: 0 lisinopril 10 mg tablet 10 mg PO HS RF: 0 coenzyme Q10 [CoQ-10] 100 mg Capsule 0 mg PO DAILY RF: 0 rosuvastatin [Crestor] 40 mg tablet 40 mg PO HS RF: 0 cholecalciferol (vitamin D3) [Vitamin D3] 25 mcg (1,000 unit) Tablet 25 mcg PO DAILY RF: 0 Xarelto 20 mg tablet 20 mg PO HS RF: 0 magnesium oxide 400 mg magnesium Tablet 400 mg PO DAILY RF: 0 Discharge Orders: Discharge Order (Routine); Ordered 11/04/20 Ordered By: Thiago Paulino Admission Data Admit Date/Time: 11/03/20 17:45 Attending Provider: Thiago Paulino Admit Provider: Fredy Hanks Primary Care Provider: Gris Horta Other Providers: Fredy Hanks ; Manjit Ontiveros Other Interventions: Discharge Summary Assessment (RN) Last Done: 11/04/20 12:32 Coding Level of Care Code 25237 OBS Care - Discharge Diagnoses Atypical chest pain R07.89 Hyperlipidemia E78.5 Atrial fibrillation I48.0 Atrial fibrillation type: paroxysmal Hypertension I10 Hypothyroidism E03.9
== END 2020-11-04 12:55 | disposition home or self-care (01) ==
LOC: ED 13:55 → 2S 13:55 → SUATTDRO 17:45 → 2S 19:01